=== PATIENT | female | born 1975 | race Caucasian/White ===

== ENCOUNTER → 2023-10-14 11:26 | Outpatient (REF) | payer OTHER, SELFPAY | LOC: WDC 11:26 | PROVIDERS: ATTENDING PHYSICIAN Family Medicine | DX: Z12.31 Encounter for screening mammogram for malignant neoplasm of breast (principal) | CPT/HCPCS: 77063; 77067 ==

== ENCOUNTER → 2024-07-20 13:22 | Outpatient (REF) | payer BC, SELFPAY | LOC: MRI 3T 13:22 | PROVIDERS: ATTENDING PHYSICIAN Physical Medicine & Rehabilitation | DX: S73.102A Unspecified sprain of left hip, initial encounter (principal) | CPT/HCPCS: 27093; 73525; 73722 ==

== ENCOUNTER → 2024-10-17 11:33 | Outpatient (REF) | payer BC, SELFPAY | LOC: WDC 11:33 | PROVIDERS: ATTENDING PHYSICIAN Physician Assistant Medical | DX: Z12.31 Encounter for screening mammogram for malignant neoplasm of breast (principal) | CPT/HCPCS: 77063; 77067 ==

== ENCOUNTER → 2024-11-24 08:43 | Outpatient (REF) | payer BC, SELFPAY | LOC: MRI 08:43 | PROVIDERS: ATTENDING PHYSICIAN Physician Assistant Medical; FAMILY PHYSICIAN Physician Assistant Medical | DX: S83.8X1A Sprain of other specified parts of right knee, initial encounter (principal) | CPT/HCPCS: 73721 ==